=== PATIENT | female | born 1960 | race Caucasian/White ===

== ENCOUNTER → 2018-03-14 | Outpatient (CLI) | payer OTHER ==
[~2018-03-14] MED LIST: ACET-76 PO; BUPR150T73 PO; CITA20TA5 PO; CLOP75TA52 PO; GABA300C10 PO; LISI2.5T PO; OMEP40CA6 PO
[2018-03-14 11:15] LABS: BASOPHILS # (AUTO) 0.04 x10^3/uL (0-0.1); BASOPHILS % (AUTO) 1 % (0-1); EOSINOPHILS # (AUTO) 0.12 x10^3/uL (0-0.4); EOSINOPHILS % (AUTO) 2 % (1-7); LYMPHOCYTES # (AUTO) 1.59 x10^3/uL (1-3.4); LYMPHOCYTES % (AUTO) 26 % (22-44); MD NO; MEAN CORPUSCULAR HEMOGLOBIN 29.4 pg (27.0-34.8); MEAN CORPUSCULAR HGB CONC 33.2 g/dL (32.4-35.8); MEAN CORPUSCULAR VOLUME 88.5 fL (80-100); MEAN PLATELET VOLUME 8.7 fL (7.4-10.4); MONOCYTES # (AUTO) 0.49 x10^3/uL (0.2-0.8); MONOCYTES % (AUTO) 8 % (2-9); NEUTROPHILS # (AUTO) 3.84 x10^3/uL (1.8-6.8); NEUTROPHILS % (AUTO) 63 % (42-75); PLATELET COUNT 252 x10^3/uL (130-400); RED CELL DISTRIBUTION WIDTH 13.1 % (9.6-15.2)
[2018-03-14 11:23] LABS: ALBUMIN 4.2 g/dL (3.4-5.0); ANION GAP 8 mmol/L (5-15); CALCIUM 9.1 mg/dL (8.5-10.1); CHLORIDE 105 mmol/L (98-107)
[2018-03-14 11:51] LABS: % IRON SATURATION 18 % (20-55); ALANINE AMINOTRANSFERASE 51 U/L (12-78); ALKALINE PHOSPHATASE 96 U/L (45-117); BILIRUBIN,TOTAL 0.8 mg/dL (0.2-1.0); CHOLESTEROL, TOTAL 194 mg/dL (140-239); CREATININE 0.86 mg/dL (0.55-1.02); FOLATE LEVEL 13.6 ng/mL (3.1-17.5); HDL CHOL % 25 % (28-40); HDL CHOLESTEROL (DIRECT) 48 mg/dL (40-60); IRON LEVEL 67 mcg/dL (50-170); LDL CHOLESTEROL,CALCULATED 107 mg/dL (54-169); LDL/HDL RATIO 2.2 (0.5-3.0); TOTAL IRON BINDING CAPACITY 367 mcg/dL (250-450); TOTAL PROTEIN 7.5 g/dL (6.4-8.2); TRANSFERRIN 303 mg/dL (200-360); TRIGLYCERIDES 194 mg/dL (50-200); VLDL CHOLESTEROL 39 mg/dL (0-25)
== END | disposition home or self-care (01) ==
LOC: STAR 09:43
PROVIDERS: ATTEND Thoracic Surgery (Cardiothoracic Vascular Surgery)
DX: Z01.818 Encounter for other preprocedural examination (principal); E66.01 Morbid (severe) obesity due to excess calories; R94.31 Abnormal electrocardiogram [ECG] [EKG]
CPT/HCPCS: 36415; 71046; 80053; 80061; 82306; 82607; 82728; 82746; 83540; 83550; 83970; 84134; 84425; 84466; 85025; 93005

== ENCOUNTER 2018-03-20 07:37 | Inpatient (IN) | payer OTHER ==
[2018-03-14 10:27] VITALS: BP 122/82
[~2018-03-20] VITALS: Ht 162.6 cm; Wt 113.0 kg
[~2018-03-20 07:37] MED LIST changes: +BUPIVACAINE/PF 0.25% ONE; +EPINEPHRINE 1 MG/ML, 1ML ONE
[2018-03-20] MEDS ORDERED: LACTATED RINGERS 1,000 ML IV SCH (08:01)
[2018-03-20] MEDS ORDERED: SCOPOLAMINE PATCH, 1.5MG PATCH.TD72 TD ONE ×4 (08:40→13:00)
[2018-03-20] MEDS ORDERED: MEPERIDINE/PF 25MG/0.5ML IVPush PRN (09:00)
[2018-03-20] MEDS ORDERED: FENTANYL PF 100 MCG/2ML IV PRN (09:00)
[2018-03-20] MEDS ORDERED: PROMETHAZINE 12.5 MG SUPP PR PRN ×2 (09:00→11:30)
[2018-03-20] MEDS ORDERED: FENTANYL PF 250 MCG/5ML ONE (09:34)
[2018-03-20] MEDS ORDERED: MIDAZOLAM 1 MG/ML, 2ML ONE (09:34)
[2018-03-20] MEDS ORDERED: CEFAZOLIN 1,000 MG ONE ×3 (10:04→10:05)
[2018-03-20] MEDS ORDERED: ONDANSETRON 2MG/ML, 2ML ONE (10:05)
[2018-03-20] MEDS ORDERED: PROPOFOL 10 MG/ML, 20ML ONE ×2 (10:05)
[2018-03-20] MEDS ORDERED: ROCURONIUM 10MG/ML,5ML ONE (10:05)
[2018-03-20] MEDS ORDERED: SUCCINYLCHOLINE 20 MG/ML, 10ML ONE (10:05)
[2018-03-20] MEDS ORDERED: DEXAMETHASONE 4 MG/ML, 1ML ONE ×2 (10:05)
[2018-03-20] MEDS ORDERED: LABETALOL 5MG/ML, 20ML ONE ×2 (10:48→11:22)
[2018-03-20] MEDS ORDERED: SUGAMMADEX 200 MG/2 ML IVPush ONE (11:00)
[2018-03-20] MEDS: LABETALOL 5MG/ML, 20ML IV PRN ×3 (11:23→11:54)
[2018-03-20] MEDS ORDERED: PHENOL THROAT SPRAY BOTTLE MM PRN (11:30)
[2018-03-20] MEDS ORDERED: ONDANSETRON 2MG/ML, 2ML IVPush PRN (11:30)
[2018-03-20] MEDS ORDERED: PROMETHAZINE 25 MG/ML, 1ML IM PRN (11:30)
[2018-03-20] MEDS ORDERED: ENALAPRILAT 1.25 MG/ML, 2ML IV PRN (11:30)
[2018-03-20] MEDS ORDERED: hydrALAzine 20 MG/ML, 1ML IVPush PRN (11:30)
[2018-03-20] MEDS ORDERED: HYDROmorphone 2 MG/ML, 1ML ONE (11:30)
[2018-03-20] MEDS: HYDROmorphone 2 MG/ML, 1ML IV PRN ×4 (11:30→12:09)
[2018-03-20] MEDS ORDERED: LORazepam 2 MG/ML, 1ML IV PRN (11:30)
[2018-03-20] MEDS ORDERED: DIPHENHYDRAMINE 50 MG/ML, 1ML IV PRN (11:30)
[2018-03-20] MEDS ORDERED: FENTANYL PF 100 MCG/2ML ONE (11:43)
[2018-03-20] MEDS ORDERED: hydrALAzine 20 MG/ML, 1ML ONE (12:14)
[2018-03-20] MEDS ORDERED: hydrALAzine 20 MG/ML, 1ML IV PRN (13:00)
[2018-03-20] MEDS: HYDROmorphone 1 MG/ML, 1ML IV PRN ×4 (14:57→21:52)
[2018-03-20] MEDS: FAMOTIDINE 20 MG/2 ML IVPush SCH ×2 (17:28→20:28)
[2018-03-20] MEDS: CEFAZOLIN PMX 2GM/50ML 50 ML IVPB SCH (17:36)
[2018-03-20] MEDS: LACTATED RINGERS 1,000 ML IV SCH ×2 (17:53→20:27)
[2018-03-20] MEDS ORDERED: HYDROcodone/APAP 7.5-325MG/15ML UDC PO PRN (19:00)
[2018-03-20 20:00] VITALS: BP 149/77
[2018-03-20 23:24] VITALS: BP 119/69
[2018-03-21] MEDS: LACTATED RINGERS 1,000 ML IV SCH ×2 (00:13→06:20)
[2018-03-21] MEDS: CEFAZOLIN PMX 2GM/50ML 50 ML IVPB SCH (01:09)
[2018-03-21] MEDS: HYDROmorphone 1 MG/ML, 1ML IV PRN ×2 (01:09→08:55)
[2018-03-21 04:19] VITALS: BP 155/84
[2018-03-21 06:02] LABS: BASOPHILS # (AUTO) 0.02 x10^3/uL (0-0.1); BASOPHILS % (AUTO) 0 % (0-1); EOSINOPHILS # (AUTO) 0.03 x10^3/uL (0-0.4); EOSINOPHILS % (AUTO) 0 % (1-7); LYMPHOCYTES # (AUTO) 1.31 x10^3/uL (1-3.4); LYMPHOCYTES % (AUTO) 11 % (22-44); MD NO; MEAN CORPUSCULAR HEMOGLOBIN 29.3 pg (27.0-34.8); MEAN CORPUSCULAR HGB CONC 33.3 g/dL (32.4-35.8); MEAN CORPUSCULAR VOLUME 88.2 fL (80-100); MONOCYTES # (AUTO) 0.67 x10^3/uL (0.2-0.8); MONOCYTES % (AUTO) 5 % (2-9); NEUTROPHILS # (AUTO) 10.42 x10^3/uL (1.8-6.8); NEUTROPHILS % (AUTO) 84 % (42-75); PLATELET COUNT 275 x10^3/uL (130-400); RED BLOOD COUNT 4.46 x10^6/uL (3.82-5.3); RED CELL DISTRIBUTION WIDTH 12.8 % (9.6-15.2)
[2018-03-21 06:13] LABS: CHLORIDE 102 mmol/L (98-107)
[2018-03-21 06:22] LABS: ALBUMIN 3.7 g/dL (3.4-5.0); ANION GAP 10 mmol/L (5-15); CREATININE 0.91 mg/dL (0.55-1.02)
[2018-03-21] MEDS: FAMOTIDINE 20 MG/2 ML IVPush SCH ×2 (08:39→22:23)
[2018-03-21] MEDS: HYDROcodone/APAP 7.5-325MG/15ML UDC PO PRN ×4 (08:39→22:16)
[2018-03-21 09:11] VITALS: BP 144/82
[2018-03-21 13:13] VITALS: BP 153/79
[2018-03-21] MEDS ORDERED: HYDR473S47 PO (14:27)
[2018-03-21] MEDS ORDERED: KETOROLAC 30 MG/1 ML ONE (16:34)
[2018-03-21] MEDS ORDERED: KETOROLAC 30 MG/1 ML IVPush PRN (17:00)
[2018-03-21 19:48] VITALS: BP 149/69
[2018-03-21] MEDS: GABAPENTIN 300 MG CAPSULE PO SCH (22:16)
[2018-03-22] MEDS: HYDROcodone/APAP 7.5-325MG/15ML UDC PO PRN ×2 (04:27→08:26)
[2018-03-22 04:28] VITALS: BP 148/82
[2018-03-22 08:20] VITALS: BP 164/83
[2018-03-22] MEDS: GABAPENTIN 300 MG CAPSULE PO SCH (08:26)
[2018-03-22] MEDS: FAMOTIDINE 20 MG/2 ML IVPush SCH (08:26)
== END 2018-03-22 10:00 | disposition home or self-care (01) | DRG 621 ==
LOC: ORIP 07:37 → 4NOR 13:04 → DCLOUNGE 03-22 09:53
PROVIDERS: ADMIT Thoracic Surgery (Cardiothoracic Vascular Surgery); ATTEND Thoracic Surgery (Cardiothoracic Vascular Surgery)
PROC: 0DB64Z3 Excision of Stomach, Percutaneous Endoscopic Approach, Vertical (ICD-10-PCS; 2018-03-20)
PROC: 0BQT4ZZ Repair Diaphragm, Percutaneous Endoscopic Approach (ICD-10-PCS; principal; 2018-03-20 09:30)
DX: E66.01 Morbid (severe) obesity due to excess calories (principal); I10 Essential (primary) hypertension; K21.9 Gastro-esophageal reflux disease without esophagitis; K44.9 Diaphragmatic hernia without obstruction or gangrene; R32 Unspecified urinary incontinence; Z68.41 Body mass index [BMI] 40.0-44.9, adult; Z86.73 Personal history of transient ischemic attack (TIA), and cerebral infarction without residual deficits; G47.33 Obstructive sleep apnea (adult) (pediatric); Z88.0 Allergy status to penicillin
CPT/HCPCS: 36415; 80048; 82040; 85025; 86850; 86900; J0171; J0690; J1100; J1170; J1885; J2250; J2405; J2704; J3010; J3490; J0330; J0360; J7120; S0028